=== PATIENT | female | born 1985 | race Native Hawaiian/Other Pacific Islander ===

== ENCOUNTER 2021-02-02 09:36 | Inpatient (IN) | payer MEDICAID, OTHER ==
[2021-02-02] MEDS ORDERED: METOCLOPRAMIDE 10 MG/2 ML INJ IV ONE (10:00)
[2021-02-02] MEDS ORDERED: BICITRA ORAL LIQD 30ML PO ONE (10:00)
[2021-02-02] MEDS ORDERED: FAMOTIDINE 20 MG/2 ML INJ IV ONE ×2 (10:00→15:43)
[2021-02-02] MEDS ORDERED: OXYTOCIN DRIP 30 UNITS/500 ML BAG IV SCH ×2 (10:00→19:00)
[2021-02-02] MEDS: LACTATED RINGERS 1,000 ML IV SCH ×2 (10:07→12:26)
[2021-02-02 10:09] LABS: Basophils % (Auto) 0.2 % (0.0-1.8); Eosinophils % (Auto) 0.4 % (0.0-4.3); Hematocrit 31.7 % (30.3-42.9); Hemoglobin 10.5 gm/dl (10.1-14.3); Lymphocytes # (Auto) 2.2 K/mm3 (1.2-5.4); Lymphocytes % (Auto) 27.8 % (13.4-35.0); Mean Corpuscular HGB Conc 33 % (30-34); Mean Corpuscular Volume 80 fl (79-97); Monocytes # (Auto) 0.8 K/mm3 (0.0-0.8); Monocytes % (Auto) 10.4 % (0.0-7.3); Platelet Count 271 K/mm3 (140-440); Red Blood Count 3.95 M/mm3 (3.65-5.03); Red Cell Distribution Width 17.5 % (13.2-15.2)
--- NOTE | 2021-02-02 10:53 | History and Physical Report ---
History of Present Illness Date of examination: 02/02/21 Date of admission: 02/02/21 09:36 Chief complaint: ERCS History of present illness: 35yo at 39.0 weeks for ERCS. no OB complaints [facility]: [place]. Past History Past Surgical History: section - Obstetrical History Expected Date of Delivery: 02/09/21 Actual Gestation: 39 Week(s) 0 Day(s) : 2 Para: 1 Medications and Allergies Allergies Allergy/AdvReac Type Severity Reaction Status Date / Time No Known Allergies Allergy Verified 02/02/21 09:42 Home Medications Medication Instructions Recorded Confirmed Last Taken Type No Known Home Medications [No 02/02/21 02/02/21 Unknown History Reported Home Medications] Active Meds: Active Medications Lactated Ringer's (Lactated Ringers) 1,000 mls @ 2,250 mls/hr IV PREOP AKASH Stop: 02/03/21 10:27 Last Admin: 02/02/21 10:07 Dose: 2,250 mls/hr Documented by: Oxytocin/Sodium Chloride (Pitocin/Ns 30 Unit/500ml) 30 units in 500 mls @ 0 mls/hr IV TITR AKASH; Protocol Review of Systems All systems: negative (no OB complaints) - Vital Signs Vital signs: Vital Signs Pulse Pulse Ox 83 98 02/02/21 09:40 02/02/21 09:40 Temp Pulse Resp BP Pulse Ox 98.8 F 77 12 115/67 98 02/02/21 10:08 02/02/21 10:45 02/02/21 10:08 02/02/21 10:08 02/02/21 10:45 - Physical Exam Breasts: Positive: deferred Cardiovascular: Regular rate Lungs: Positive: Clear to auscultation Abdomen: Positive: normal appearance, soft, normal bowel sounds Genitourinary (Female): Positive: normal external genitalia, normal perenium Vagina: Positive: normal moisture Uterus: Positive: enlarged Anus/Rectum: Positive: normal perianal skin Extremities: Positive: normal Deep Tendon Reflex Grade: Normal +2 - Obstetrical FHR: category 1 Uterine Contraction Pattern: Absent Results Result Diagrams: 02/02/21 09:50 Abnormal lab results 02/02/21 Range/Units 09:50 MCH 27 L (28-32) pg RDW 17.5 H (13.2-15.2) % Arroyo % (Auto) 10.4 H (0.0-7.3) % All other labs normal. 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
--- NOTE | 2021-02-02 13:39 | Anesthesia Consultation ---
Anesthesia Consult and Med Hx Date of service: 02/02/21 - Airway Anesthetic Teeth Evaluation: Good ROM Head & Neck: Adequate Mental/Hyoid Distance: Adequate Mallampati Class: Class II Intubation Access Assessment: Probably Good - Pulmonary Exam CTA: Yes - Cardiac Exam Cardiac Exam: RRR - Pre-Operative Health Status ASA Pre-Surgery Classification: ASA2 Proposed Anesthetic Plan: Spinal - Pulmonary Hx Asthma: Yes (childhood) Hx Pneumonia: No - Cardiovascular System Hx Hypertension: No - Central Nervous System Hx Seizures: No Hx Psychiatric Problems: No - Endocrine Hx Renal Disease: No Hx Hypothyroidism: No Hx Hyperthyroidism: No - Hematic Hx Anemia: No Hx Sickle Cell Disease: No - Other Systems Hx Alcohol Use: No
[2021-02-02] MEDS ORDERED: ceFAZolin/STERILE WATER 2 GM/20 ML SYRINGE IV ONE (13:58)
[2021-02-02] MEDS ORDERED: ONDANSETRON 4 MG/2 ML INJ ONE (15:39)
[2021-02-02] MEDS ORDERED: dexAMETHasone 20 MG/5 ML VIAL ONE (15:39)
[2021-02-02] MEDS ORDERED: KETOROLAC 30 MG/1 ML INJ ONE (15:39)
[2021-02-02] MEDS ORDERED: BUPIVACAINE/PF (0.5%) 5 MG/1 ML 30 ML VIAL INFILTRATI ONE (15:39)
[2021-02-02] MEDS ORDERED: BICITRA ORAL LIQD 30ML ONE (15:42)
[2021-02-02] MEDS ORDERED: METOCLOPRAMIDE 10 MG/2 ML INJ ONE (15:43)
[2021-02-02] MEDS ORDERED: ceFAZolin/Water 2 GM/20 ML 2 GM/20 ML SYRINGE IV ONE (15:43)
[2021-02-02] MEDS ORDERED: PHENYLEPHRINE/NS 1,000 MCG/10 ML SYRINGE (OR USE) IV ONE (15:44)
--- NOTE | 2021-02-02 16:18 | Procedure Note ---
OB Delivery Note - Delivery Date of Delivery: 02/02/21 Surgeon: ALTA WEEMS - Section Postop diagnosis: same section procedure: repeat low transverse Disposition: PACU Complications: none Narrative: Preop diagnosis: IUP at weeks Postop diagnosis: Same Procedure: Elective Repeat low transverse section via Pfannenstiel incision Surgeon: Dr. Alta Weems Anesthesia spinal Complications none EBL 700ml IV fluids 1000mL Urine output 100mL, clear Drains Hernadez to gravity Findings: Viable female with weight 3179gms and 9/9, normal uterus tubes and ovaries bilaterally Procedure: Patient was consented in OB triage, taken to the operating room where she received excellent spinal anesthesia. She was then placed in the dorsal supine position with a leftward tilt. The abdomen was prepped and draped in a sterile fashion, and a timeout was verified. Adequate anesthesia was confirmed prior to the skin incision. A Pfannenstiel skin incision was made with a scalpel taken down to the underlying structures and the fascia was incised in the midline. The incision was extended laterally with curved Jamil scissors, the superior and inferior aspects of the fascial incisions were grasped with Cb clamps and the rectus muscles dissected sharply. The abdomen was entered bluntly in the midline carried down inferiorly with good visualization of the bladder. The vesicouterine peritoneum was tented with [place] forceps and incised in the midline with Metzenbaum scissors and the vesicouterine peritoneum taken down sharply. SPRING was inserted, the uterine incision was made sharply with a scalpel. The inferior and superior aspect of the uterine incisions were extended bluntly, the baby's head was delivered atraumatically. The remainder of the delivery was umcolpicated, a loose nuchal cord was reduced after delivery. The cord was clamped and cut and baby handed to waiting NICU team. An intact placenta with three-vessel cord delivered manually. The uterus was then cleared of all clots and debris. The uterine incision was closed with 2 layers of 0 Vicryl with excellent hemostasis. The abdomen was then irrigated with warm normal saline and the uterus placed back into the abdomen atraumatically. A second look at the uterine incision assured hemostasis. The peritoneum was closed with 3-0 Vicryl, the rectus muscles approximated with 3-0 Vicryl, and the fascia closed with 0 Vicryl in the usual fashion. The subcuticular structures were closed with 3-0 Vicryl and the skin closed with 4-0 Monocryl. A pressure dressing was applied. All sponge needle and instrument counts were correct x2. There were no complications. Mom and baby to recovery in stable condition. EBL 700mL Sosa Weems MD
[2021-02-02] MEDS ORDERED: KETAMINE/STERILE WATER 50 MG/ML SYRINGE ONE (16:34)
[2021-02-02] MEDS ORDERED: LACTATED RINGERS 1,000 ML ONE (17:04)
[2021-02-02] MEDS ORDERED: MORPHINE 2 MG/1 ML INJ IV PRN (18:38)
[2021-02-02] MEDS ORDERED: WITCH HAZEL/ GLYCERIN PAD TP PRN (18:38)
[2021-02-02] MEDS ORDERED: MORPHINE 4 MG/1 ML INJ IV PRN (18:38)
[2021-02-02] MEDS ORDERED: NALOXONE 0.4 MG/1 ML INJ IV PRN (18:38)
[2021-02-02] MEDS ORDERED: IBUPROFEN 600 MG TAB PO PRN (18:38)
[2021-02-02] MEDS ORDERED: LANOLIN/ZINC/DIMETHICONE (LANSINOH) 7 GM TP PRN (18:38)
[2021-02-03 07:57] LABS: Hematocrit 28.6 % (30.3-42.9); Hemoglobin 9.9 gm/dl (10.1-14.3)
[2021-02-03] MEDS: HYDROcodone/ACETAMINOPHEN 5-325 MG TAB PO PRN ×2 (10:49→16:25)
--- NOTE | 2021-02-03 16:05 | Post Anesthesia Evaluation ---
- Post Anesthesia Evaluation Patient Participated: Yes Airway Patent: Yes Stable Respiratory Function: Yes Nausea/Vomiting: No Temp > 96.8F: Yes Pain Manageable: Yes Adequeate Hydration: Yes Anesthesia Complications: No Block Receding Appropriately: Yes
[2021-02-04] MEDS: HYDROcodone/ACETAMINOPHEN 5-325 MG TAB PO PRN ×2 (05:40→16:55)
--- NOTE | 2021-02-04 09:33 | Progress Note ---
Assessment and Plan A: /postop day 2 S/P repeat LTCS. Anemia. P: Supplement with oral iron. Continue routine /postop care. Anticipate discharge home tomorrow if patient continues to do well. Subjective - Subjective Date of service: 02/04/21 Principal diagnosis: S/P repeat LTCS Interval history: Doing well. Patient reports: appetite normal, voiding normally, pain well controlled, f latus, ambulating normally, no dizzy ambulation, no nauseated [place]: doing well Objective - Vital Signs Latest vital signs: Vital Signs Temp Pulse Resp BP BP Pulse Ox 02/04/21 08:25 98.2 F 67 20 93/48 02/03/21 23:34 98.2 F 72 20 105/68 97 02/03/21 16:11 97.3 F L 73 18 107/70 96 02/03/21 12:22 98.0 F 66 18 111/71 96 Intake and Output 02/03/21 02/04/21 02/04/21 23:59 07:59 15:59 Intake Total 120 600 360 Balance 120 600 360 Intake: Oral 360 Intake, Free Water 120 600 Other: Total, Intake Amount 360 # Voids Void 1 1 1 - Exam Cardiovascular: Present: Regular rate Lungs: Present: Clear to auscultation Abdomen: Present: normal appearance, soft, normal bowel sounds. Absent: distention, tenderness, guarding, rigidity Uterus: Present: normal, firm, fundal height below umbilicus. Absent: bogginess, tenderness Extremities: Present: normal. Absent: tenderness Incision: Present: normal, dry, intact
[2021-02-04] MEDS: FERROUS SULFATE 325 MG TAB PO SCH (10:49)
[2021-02-04] MEDS: IBUPROFEN 800 MG TAB PO PRN ×2 (12:20→21:20)
[2021-02-05] MEDS: HYDROcodone/ACETAMINOPHEN 5-325 MG TAB PO PRN ×2 (00:08→06:09)
--- NOTE | 2021-02-05 06:07 | Progress Note ---
Assessment and Plan A: /postop day 3 S/P repeat LTCS. Anemia. P: Discharge patient home today. Discussed with patient /postop discharge instructions and warning signs. Care of incision and activity restrictions discussed with patient. Advised patient to continue taking her vitamin and iron supplements at home. Advised patient to avoid intercourse, lifting, heavy housework. Advised patient to follow up at [facility] in 1 week. Patient voiced understanding of all instructions. Subjective - Subjective Date of service: 02/05/21 Principal diagnosis: S/P repeat LTCS Interval history: Doing well. Desires discharge home today. Patient reports: appetite normal, voiding normally, pain well controlled, flatus, ambulating normally, no dizzy ambulation, no nauseated : doing well Objective - Vital Signs Latest vital signs: Vital Signs Temp Pulse Resp BP BP Pulse Ox 02/04/21 23:58 98.0 F 79 20 110/72 98 02/04/21 16:55 16 02/04/21 15:45 98.1 F 74 20 120/75 02/04/21 08:25 98.2 F 67 20 93/48 Intake and Output 02/04/21 02/04/21 02/05/21 15:59 23:59 07:59 Intake Total 1140 240 Balance 1140 240 Intake: Oral 1140 240 Other: Total, Intake Amount 120 240 # Voids Void 1 1 - Exam Cardiovascular: Present: Regular rate Lungs: Present: Clear to auscultation Abdomen: Present: normal appearance, soft, normal bowel sounds. Absent: distention, tenderness, guarding, rigidity Uterus: Present: normal, firm, fundal height below umbilicus. Absent: bogginess, tenderness Extremities: Present: normal. Absent: tenderness, edema Incision: Present: normal, dry, intact
--- NOTE | 2021-02-05 06:12 | Discharge Summary ---
Providers - Providers Date of Admission: 02/02/21 09:36 Date of discharge: 02/05/21 Attending physician: ALTA WEEMS MD Primary care physician: ALTA WEEMS MD Hospitalization Reason for admission: section Delivery: Procedure: repeat low transverse Incision: normal, dry, intact complications: none Discharge diagnosis: IUP at term delivered baby: female Pertinent studies: Labs Hospital course: Stable hospital course Condition at discharge: Good Disposition: DC-01 TO HOME OR SELFCARE - Discharge Diagnoses (1) Term delivered Status: Acute (2) Anemia Status: Acute Plan - Discharge Medications Prescriptions: Ibuprofen [Motrin] 600 mg PO Q8H PRN #60 tablet PRN Reason: Pain oxyCODONE /ACETAMINOPHEN [Percocet 5/325] 1 tab PO Q6HR PRN #20 tablet PRN Reason: Pain - Provider Discharge Summary Activity: routine, no sex for 6 weeks, no heavy lifting 4 weeks, no strenuous exercise Diet: routine Instructions: routine Additional instructions: Continue taking your vitamin and iron supplement at home. Follow up at [facility] in 1 week. Call your doctor immediately for: * Fever > 100.5 * Heavy vaginal bleeding ( >1 pad per hour) * Severe persistent headache * Shortness of breath * Reddened, hot, painful area to leg or breast * Drainage or odor from incision. * Keep incision clean and dry at all times and follow doctor's instructions regarding bathing/showering - Follow up plan Follow up: [facility] [Referring] - 7 Days
[2021-02-05] MEDS: FERROUS SULFATE 325 MG TAB PO SCH (10:37)
[2021-02-05 12:05] VITALS: BP 118/85
== END 2021-02-05 12:10 | disposition home or self-care (01) | DRG 788 ==
LOC: APU 09:36 → OB 19:59
PROVIDERS: ADMIT Obstetrics & Gynecology; ATTEND Obstetrics & Gynecology
PROC: 10D00Z1 Extraction of Products of Conception, Low, Open Approach (ICD-10-PCS; principal; 2021-02-02)
DX: O34.211 Maternal care for low transverse scar from previous cesarean delivery (principal); Z3A.39 39 weeks gestation of pregnancy; Z37.0 Single live birth; O90.81 Anemia of the puerperium; D64.9 Anemia, unspecified; Z20.822 Contact with and (suspected) exposure to COVID-19
CPT/HCPCS: 36415; 85014; 85018; 85025; 86850; 86900; 86901; G0378; A6250; J0690; J1100; J1885; J2270; J2370; J2405; J2765; J3490; J7120; U0003